=== PATIENT | female | born 1970 | race Asian ===

== ENCOUNTER 2019-07-05 23:25 | Emergency (ER) | payer OTHER ==
[~2019-07-05] VITALS: Ht 160 cm; Wt 74.4 kg
[2019-07-05 23:45] VITALS: Ht 160 cm; Wt 74.4 kg
[2019-07-06 00:56] VITALS: BP 111/74
== END 2019-07-06 00:56 | disposition home or self-care (01) ==
LOC: ED 23:25
DX: L50.9 Urticaria, unspecified (principal); L25.9 Unspecified contact dermatitis, unspecified cause; Z98.890 Other specified postprocedural states; Z90.89 Acquired absence of other organs
CPT/HCPCS: J0171; J1200; J7512